=== PATIENT | female | born 1990 | race Two or more races ===

== ENCOUNTER 2021-11-18 07:09 | Outpatient (REF) | payer OTHER, MEDICARE, SELFPAY ==
--- NOTE | ~2021-11-18 | MR_ITS ---
EXAMINATION: MR LUMBAR SPINE WITHOUT CONTRAST CLINICAL INFORMATION: Spondylosis. Radiculopathy. Low back pain. Patient reports history of degenerative disc disease and ruptured discs. COMPARISON: None. TECHNIQUE: MRI of the lumbar spine was obtained using routine sequences without contrast. FINDINGS: VERTEBRAL BODIES AND PARASPINAL STRUCTURES: Vertebral bodies normally aligned with normal height and marrow. Multilevel degenerative disc changes with disc desiccation noted at the L2-L3 through L5-S1 discs. Paravertebral soft tissues unremarkable. CONUS MEDULLARIS AND CAUDA EQUINA: Conus at the level of L1-2. Cauda equina unremarkable. SPINAL LEVELS: T12-L1: Normal. L1-2: Normal. L2-L3: Minimal bulging of the disc. Facets normal. Central canal and neural foramina are normal. L3-L4: Minimal bulging of the disc. Facets normal. Central canal and neural foramina are normal. L4-L5: Minimal bulging of the disc. Facets normal. Central canal and neural foramina are normal. L5-S1: Disc desiccation with generalized bulging of the disc and slight loss in disc height. There is a left central disc protrusion with right T2 signal compatible with annular fissure. This mildly indents on the anterior thecal sac. This may abut the traversing left S1 nerve root. Facets normal. Central canal otherwise normal. Neural foramina are normal. MR/MR lumbar spine wo con IMPRESSION: Multilevel spondylosis of lumbosacral spine. L5-S1 - There is a left central disc protrusion mildly narrowing the central canal and possibly indenting on the traversing left S1 nerve root.
== END 2021-11-18 07:10 | disposition home or self-care (01) ==
LOC: HO.MRI 07:09
PROVIDERS: PCP Nurse Practitioner Family; Visit Provider Neurological Surgery
DX: M47.817 Spondylosis without myelopathy or radiculopathy, lumbosacral region (principal); M54.16 Radiculopathy, lumbar region
CPT/HCPCS: 72148

== ENCOUNTER → 2022-05-15 08:34 | Outpatient (BNVA) | payer OTHER, MEDICARE, SELFPAY | PROVIDERS: PCP Nurse Practitioner Family; Visit Provider Internal Medicine | DX: M54.17 Radiculopathy, lumbosacral region (principal) | CPT/HCPCS: 99212 ==

== ENCOUNTER → 2022-07-03 09:12 | Outpatient (BNVA) | payer OTHER, MEDICARE, MEDICAID, SELFPAY | PROVIDERS: PCP Nurse Practitioner Family; Visit Provider Internal Medicine | DX: M54.17 Radiculopathy, lumbosacral region (principal) | CPT/HCPCS: 99212 ==

== ENCOUNTER → 2022-07-28 09:50 | Outpatient (BNVA) | payer OTHER, MEDICARE, MEDICAID, SELFPAY | PROVIDERS: PCP Nurse Practitioner Family; Visit Provider Internal Medicine | DX: M54.17 Radiculopathy, lumbosacral region (principal) | CPT/HCPCS: 99212 ==

== ENCOUNTER → 2022-08-04 08:26 | Outpatient (BNVA) | payer OTHER, MEDICARE, MEDICAID, SELFPAY | PROVIDERS: PCP Nurse Practitioner Family; Visit Provider Internal Medicine | DX: Z13.89 Encounter for screening for other disorder (principal) ==

== ENCOUNTER → 2022-09-29 11:22 | Outpatient (BNVA) | payer OTHER, MEDICARE, MEDICAID, SELFPAY | PROVIDERS: PCP Nurse Practitioner Family; Visit Provider Internal Medicine | DX: M54.17 Radiculopathy, lumbosacral region (principal); M79.18 Myalgia, other site | CPT/HCPCS: 99212 ==

== ENCOUNTER → 2022-11-10 09:27 | Outpatient (BNVA) | payer OTHER, MEDICARE, MEDICAID, SELFPAY | PROVIDERS: PCP Nurse Practitioner Family; Visit Provider Internal Medicine | DX: M79.18 Myalgia, other site (principal); M54.17 Radiculopathy, lumbosacral region | CPT/HCPCS: 99212 ==

== ENCOUNTER → 2022-11-27 15:33 | Outpatient (BNVA) | payer OTHER, MEDICARE, MEDICAID, SELFPAY | PROVIDERS: PCP Nurse Practitioner Family; Visit Provider Internal Medicine | DX: M79.18 Myalgia, other site (principal); M54.17 Radiculopathy, lumbosacral region | CPT/HCPCS: 99212 ==

== ENCOUNTER 2022-11-27 15:34 | Outpatient (AMB) | payer OTHER, MEDICARE, MEDICAID, SELFPAY ==
--- OUTSIDE RECORDS SUMMARY | 2022-11-27 15:34 | XMS_ITS | Continuity of Care Document ---
Author Name Unknown Organization [facility] y Address [address] [place] [address], [address] [place] [address]- Care Team Providers Care Bisque Brusher Name Role Phone Edin Walker DMD Primary Care Physician Encounter [facility] Date(s): 08/25/22 - 10/11/22 [facility] [address] [place] [address] Drive, [address] [place] [address]- Attending Physician: Lei Suarez MD Referring Physician: Jhonathan ADEN, Naif Rondon Patient Care team information Care Team Personnel Name: Edin Walker DMD Position: Reference Physician Member Role: PCP Address: Address: [address] [place] [address] [address] [place] [address]-
[2022-11-27 15:46] VITALS: BP 120/70; PULSE 95; RESP 16; O2SAT 98; BMI 34.6
--- NOTE | 2022-11-27 15:46 | A.OFFVIS_ITS ---
Intake Vital Signs 11/27/22 15:46 Height 5 ft Weight 177 lb BMI 34.6 BP 120/70 Blood Pressure Location Rt brachial Position Sitting Respiration 16 Pulse 95 Pulse Source Pulse Oximeter Pulse Oximetry (%) 98 Oxygen Delivery Method Room Air Intake Visit Reasons: Follow Up to Complete CaseExpert Paperwork Allergies No Known Allergies Allergy (Verified 11/27/22 15:49) HPI Follow Up to Complete CaseExpert Paperwork HPI Details 32-year-old female presenting today for a follow-up to review and complete WC claim paperwork. Based on patient provided information, she is unable to participate in work requiring rigorous physical activity including lying ring stairs or ladders, lifting heavy objects or duties requiring bending, lifting and twisting. 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 [facility] Medical History (Updated 09/29/22 @ 12:07 by Naif Ring MD) Anxiety disorder Bipolar disorder PTSD (post-traumatic stress disorder) Stargardts disease Review of Systems Const All systems reviewed & are unremarkable except as noted in HPI and below Physical Exam Vital Signs: Last Vital Signs Pulse 95 11/27/22 15:46 Resp 16 11/27/22 15:46 BP 120/70 11/27/22 15:46 Pulse Ox 98 11/27/22 15:46 Oxygen Delivery Method Room Air 11/27/22 15:46 BMI result Body Mass Index 34.6 General: Appears afebrile. Alert and oriented. Mood and affect appropriate. Follows and participates in conversation appropriately. Respiratory effort is unlabored. Able to transition from sit to stand unassisted. Ambulates with bilaterally normal heel strike and toe off. Results Reviewed Results Reviewed: No imaging is available for review. Assessment & Plan Assessment & Plan (1) Myofascial pain syndrome: Code(s): M79.18 - Myalgia, other site (2) Lumbosacral radiculitis: Code(s): M54.17 - Radiculopathy, lumbosacral region Plan 32-year-old female with a work related injury with subsequent chronic S1 radiculopathy presenting for follow-up to review paperwork regarding potential return to work. 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 With regards to spinal cord stimulation, I reiterated that she is young for considering a permanent device implant. However, trial of spinal cord stimulation may be undertaken for temporary placement over the next few years un til her symptoms self-resolved. At that point the device may be removed to prevent any long-term complications from an external device placement. Documentation regarding the aforementioned recommendations was provided to the patient and faxed to her worker's comp tappet adjuster. Scribed for Dr. Ring by Ben Maza, medical van driver, on 11/27/2022. I, Dr. Ring, have personally reviewed and agree with the information entered by the scribe. Coding Level of Care Code Est Pt Level 4 (97501) Diagnoses Myofascial pain syndrome M79.18 Lumbosacral radiculitis M54.17
== END 2022-11-27 16:35 | disposition home or self-care (01) ==
PROVIDERS: PCP Nurse Practitioner Family; Visit Provider Internal Medicine
DX: M79.18 Myalgia, other site (principal); M54.17 Radiculopathy, lumbosacral region
CPT/HCPCS: 99214

== ENCOUNTER 2023-02-19 09:40 | Outpatient (AMB) | payer OTHER, MEDICARE, MEDICAID, SELFPAY ==
--- NOTE | 2023-02-19 09:46 | A.OFFVIS_ITS ---
Intake Vital Signs 02/19/23 09:47 Height 5 ft Weight 177 lb BMI 34.6 BP 124/76 Blood Pressure Location Lt brachial Position Sitting Respiration 14 Pulse 92 Pulse Source Pulse Oximeter Pulse Oximetry (%) 99 Oxygen Delivery Method Room Air Intake Visit Reasons: Discussion of Potential Neuropathy Allergies No Known Allergies Allergy (Verified 02/19/23 11:52) HPI Discussion of Potential Neuropathy HPI Details 32-year-old female who presents today to the office for a discussion of potential neuropathy. She reports worsening of her neuropathic pain in her foot and arms for the past three weeks. She has stiffness in her neck and has tried acupuncture therapy. She reports pain in her arms radiating down to her hand. This is new. She reports stabbing pain in the side of her leg that radiates down to her big toes, which is old. She is currently on gabapentin. She also takes Tylenol and ibuprofen. She has not performed physical therapy in the recent past. She had a nerve conduction study of the lower extremities in the past. [facility] Medical History (Updated 02/19/23 @ 11:52 by Lucille Medina) PTSD (post-traumatic stress disorder) Bipolar disorder Anxiety disorder Stargardts disease Review of Systems Const All systems reviewed & are unremarkable except as noted in HPI and below Physical Exam Vital Signs: Last Vital Signs Pulse 92 02/19/23 09:47 Resp 14 02/19/23 09:47 BP 124/76 02/19/23 09:47 Pulse Ox 99 02/19/23 09:47 Oxygen Delivery Method Room Air 02/19/23 09:47 BMI result Body Mass Index 34.6 General: Appears afebrile. Alert and oriented. Mood and affect appropriate. Follows and participates in conversation appropriately. Respiratory effort is unlabored. Able to transition from sit to stand unassisted. Ambulates with bilaterally normal heel strike and toe off. Results Reviewed Results Reviewed: No imaging is available for review. Assessment & Plan Assessment & Plan (1) Upper extremity pain, medial: Code(s): M79.603 - Pain in arm, unspecified Plan Ordered a nerve conduction study for the upper extremities. The patient will receive a call to schedule the appointment. The patient will follow up to review the result. Scribed for Dr. Ring by Ben Maza medical billing coordinator, on 02/19/2023. I, Dr. Ring, have personally reviewed and agree with the information entered by the scribe. Orders: Orders NE electromyogram (EMG) 02/19/23 M79.603 - Pain in arm, unspecified Coding Level of Care Code Est Pt Level 3 (96199) Diagnoses Upper extremity pain, medial M79.603
[2023-02-19 09:47] VITALS: BP 124/76; PULSE 92; RESP 14; O2SAT 99; BMI 34.6
== END 2023-02-19 10:27 | disposition home or self-care (01) ==
PROVIDERS: PCP Nurse Practitioner Family; Visit Provider Internal Medicine
DX: M79.603 Pain in arm, unspecified (principal)
CPT/HCPCS: 99213

== ENCOUNTER → 2023-02-19 09:40 | Outpatient (BNVA) | payer OTHER, MEDICARE, MEDICAID, SELFPAY | PROVIDERS: PCP Nurse Practitioner Family; Visit Provider Internal Medicine | DX: M79.603 Pain in arm, unspecified (principal) | CPT/HCPCS: 99212 ==

== ENCOUNTER 2023-04-27 11:02 | Outpatient (REF) | payer MEDICARE, OTHER, SELFPAY ==
--- NOTE | 2023-04-27 11:04 | EMG_ITS ---
Chief complaint: Bilateral arm pain, neck pain Reason for referral: Evaluate for radiculopathy Referred by: Dr. Ring Procedure done: Bilateral upper extremities NCS/EMG Precautions and/or limitations: None The limb temperature was monitored continuously and remained between 32-36 degrees C during the performance of the NCS. Nerve Conduction Studies Anti Sensory Summary Table ?Stim Site NR Onset (ms) Norm Onset (ms) Peak (ms) Norm Peak (ms) O-P Amp (?V) Norm O-P Amp Site1 Site2 Delta-0 (ms) Dist (cm) Cipriano (m/s) Norm Cipriano (m/s) Left Median Anti Sensory (2nd Digit) Wrist ? 2.0 2.6 <3.6 25.2 >10 Wrist 2nd Digit 2.0 14.0 70 Right Median Anti Sensory (2nd Digit) Wrist ? 2.0 2.7 <3.6 47.3 >10 Wrist 2nd Digit 2.0 14.0 70 Right Radial Anti Sensory (Thumb) Forearm ? 1.3 1.8 <3.1 33.6 Forearm Thumb 1.3 0.0 Left Ulnar Anti Sensory (5th Digit) Wrist ? 1.7 2.4 <3.7 45.5 >15.0 Wrist 5th Digit 1.7 14.0 82 Right Ulnar Anti Sensory (5th Digit) Wrist ? 2.0 2.6 <3.7 38.1 >15.0 Wrist 5th Digit 2.0 14.0 70 Motor Summary Table ?Stim Site NR Onset (ms) Norm Onset (ms) O-P Amp (mV) Norm O-P Amp iAmp (mV) Amp (1st) (%) Site1 Site2 Delta-0 (ms) Dist (cm) Cipriano (m/s) Norm Cipriano (m/s) Left Median Motor (Abd Poll Brev) Wrist ? 2.8 <3.9 15.1 >4.5 17.1 100.0 Elbow Wrist 3.1 19.0 61 >45 Elbow ? 5.9 13.7 15.5 90.7 Right Median Motor (Abd Poll Brev) Wrist ? 2.8 <3.9 14.4 >4.5 16.8 100.0 Elbow Wrist 3.1 18.5 60 >45 Elbow ? 5.9 14.3 16.8 99.3 Left Ulnar Motor (Abd Dig Minimi) Wrist ? 2.4 <3.0 9.2 >5 11.7 100.0 B Elbow Wrist 2.4 14.0 58 >45 B Elbow ? 4.8 9.1 11.9 98.9 A Elbow B Elbow 1.3 10.0 77 >45 A Elbow ? 6.1 8.3 11.0 90.2 Right Ulnar Motor (Abd Dig Minimi) Wrist ? 2.5 <3.0 10.1 >5 12.7 100.0 B Elbow Wrist 2.7 17.0 63 >45 B Elbow ? 5.2 9.7 12.2 96.0 A Elbow B Elbow 1.1 10.0 91 >45 A Elbow ? 6.3 9.6 12.6 95.0 EMG ?Side Muscle Nerve Root Ins Act Fibs Psw Amp Dur Poly Recrt Int Pat Comment Right 1stDorInt Ulnar C8-T1 Nml Nml Nml Nml Nml 0 Nml Complete Right FlexCarRad Median C6-7 Nml Nml Nml Nml Nml 0 Nml Complete Right Biceps Musculocut C5-6 Nml Nml Nml Nml Nml 0 Nml Complete Right Triceps Radial C6-7-8 Nml Nml Nml Nml Nml 0 Nml Complete Right Deltoid Axillary C5-6 Nml Nml Nml Nml Nml 0 Nml Complete Left 1stDorInt Ulnar C8-T1 Nml Nml Nml Nml Nml 0 Nml Complete Left FlexCarRad Median C6-7 Nml Nml Nml Nml Nml 0 Nml Complete Left Biceps Musculocut C5-6 Nml Nml Nml Nml Nml 0 Nml Complete Left Triceps Radial C6-7-8 Nml Nml Nml Nml Nml 0 Nml Complete Left Deltoid Axillary C5-6 Nml Nml Nml Nml Nml 0 Nml Complete FINDINGS: All motor and sensory nerves tested showed normal latencies, amplitudes and conduction velocities. Concentric needle EMG was performed in selected muscles of the bilateral upper extremities. Study did not reveal signs of electric abnormalities as shown in the table below. IMPRESSION: 1. This is a normal study. 2. There is no electrodiagnostic evidence for median neuropathy, ulnar neuropathy, brachial plexopathy, or cervical radiculopathy. Thank you for your kind referral. Tierra Duran MD, DORI Board Certified, [place] [employer] and Rehabilitation (ABPMR) Board Certified, [place] Board of Electrodiagnostic Medicine (ABEM) CODIN 58815 x 2 MTDD
== END 2023-04-27 11:03 | disposition home or self-care (01) ==
LOC: HO.NEURO 11:02
PROVIDERS: PCP Nurse Practitioner Family; Visit Provider Internal Medicine
DX: M79.601 Pain in right arm (principal); M79.602 Pain in left arm; M54.2 Cervicalgia
CPT/HCPCS: 95886; 95911

== ENCOUNTER → 2023-04-27 11:04 | Outpatient (BNV) | payer MEDICARE, MEDICAID, SELFPAY | PROVIDERS: PCP Nurse Practitioner Family; Visit Provider Physical Medicine & Rehabilitation | DX: M79.601 Pain in right arm (principal); M79.602 Pain in left arm; M54.2 Cervicalgia | CPT/HCPCS: 95886; 95911 ==

== ENCOUNTER → 2023-05-11 08:14 | Outpatient (BNVA) | payer OTHER, MEDICARE, MEDICAID, SELFPAY | PROVIDERS: PCP Nurse Practitioner Family; Visit Provider Internal Medicine | DX: M54.12 Radiculopathy, cervical region (principal); M54.17 Radiculopathy, lumbosacral region | CPT/HCPCS: 99212 ==

== ENCOUNTER 2023-05-11 08:15 | Outpatient (AMB) | payer OTHER, MEDICARE, MEDICAID, SELFPAY ==
--- NOTE | 2023-05-11 08:16 | MHC.OFFVIS ---
Intake Vital Signs 05/11/23 08:18 Height 5 ft Weight 177 lb BMI 34.6 Blood Pressure Location Lt brachial Position Sitting Respiration 12 Pulse 99 Pulse Source Pulse Oximeter Pulse Oximetry (%) 97 Oxygen Delivery Method Room Air Intake Visit Reasons: Follow Up/Back Pain/lvm Allergies No Known Allergies Allergy (Verified 05/11/23 08:19) Medication List - Last Reconciled 05/11/23 by Shari Grady LPN albuterol sulfate 90 mcg/actuation (ProAir HFA) 2 puffs inhalation Q4H PRN cholecalciferol (vitamin D3) 50 mcg PO DAILY cyclobenzaprine 10 mg PO BID PRN fluoxetine 40 mg PO DAILY gabapentin 800 mg PO TID L norgest/e.estradiol-e.estrad 0.15 mg-30 mcg (84)/10 mcg (7) (Simpesse) 1 tab PO DAILY melatonin 3 mg PO BEDTIME HPI Follow Up/Back Pain/lvm HPI Details 33-year-old female who presents today to the office for a follow-up. The patient reports pain in the back that radiates down to her legs, especially on the left side. She has difficulty standing for more than an hour. She had an interlaminar epidural injection in the past with minimal relief for 2?3 days. She has been doing stretching exercises at home. She states that her insurance approved only 10 sessions of physical therapy for low back pain that she exhausted. She spends most of her day resting on the couch. She has on-and-off neuropathic pain in her hands and neck. She has mild neck stiffness. She has tried physical therapy for the neck pain. [facility] Medical History (Updated 05/11/23 @ 08:38 by Naif Ring MD) PTSD (post-traumatic stress disorder) Bipolar disorder Anxiety disorder Stargardts disease Review of Systems Const All systems reviewed & are unremarkable except as noted in HPI and below Physical Exam Vital Signs: Last Vital Signs Pulse 99 05/11/23 08:18 Resp 12 05/11/23 08:18 Pulse Ox 97 05/11/23 08:18 Oxygen Delivery Method Room Air 05/11/23 08:18 BMI result Body Mass Index 34.6 General: Appears afebrile. Alert and oriented. Mood and affect appropriate. Follows and participates in conversation appropriately. Respiratory effort is unlabored. Able to transition from sit to stand unassisted. Ambulates with bilaterally normal heel strike and toe off. Straight leg raise is positive on the left side. She is able to stand on both her heels. No lower left extremity weakness. Results Reviewed Results Reviewed: 04/27/23: Nerve conduction study FINDINGS: All motor and sensory nerves tested showed normal latencies, amplitudes and conduction velocities. Concentric needle EMG was performed in selected muscles of the bilateral upper extremities. Study did not reveal signs of electric abnormalities as shown in the table below. IMPRESSION: 1. This is a normal study. 2. There is no electrodiagnostic evidence for median neuropathy, ulnar neuropathy, brachial plexopathy, or cervical radiculopathy. Assessment & Plan Assessment & Plan (1) Cervical radiculitis: Code(s): M54.12 - Radiculopathy, cervical region (2) Lumbosacral radiculitis: Code(s): M54.17 - Radiculopathy, lumbosacral region Plan Will schedule her for a left L5-S1 TFESI for her persistent left lumbar radiculitis symptoms. Reviewed MRI with the patient. Discussed the risks and benefits of the procedure with the patient in detail. All questions were answered. The patient is on board with the plan. I also encouraged her to continue with strengthening exercises and physical therapy exercises at home. I also recommended trying swimming and inversion table at home. Justification for interventional therapy: ? Patient with average pain > 6/10 ? Patient has exhausted conservative therapy ? Patient continuing home exercise program A referral was provided to physical therapy for neck pain and radiculitis with radiating symptoms down the left arm. Scribed for Dr. Ring by Ben Maza, back office medical assistant, on 05/11/2022. I, Dr. Ring, have personally reviewed and agree with the information entered by the scribe. Orders: Orders PT Evaluation and Treatment Today M54.12 - Radiculopathy, cervical region Coding Level of Care Code Est Pt Level 4 (46769) Diagnoses Cervical radiculitis M54.12 Lumbosacral radiculitis M54.17
[2023-05-11 08:18] VITALS: PULSE 99; RESP 12; O2SAT 97; BMI 34.6
== END 2023-05-11 08:41 | disposition home or self-care (01) ==
PROVIDERS: PCP Nurse Practitioner Family; Visit Provider Internal Medicine
DX: M54.12 Radiculopathy, cervical region (principal); M54.17 Radiculopathy, lumbosacral region
CPT/HCPCS: 99214

== ENCOUNTER 2023-06-14 06:09 | Outpatient (REF) | payer OTHER, MEDICARE, MEDICAID, SELFPAY ==
--- NOTE | ~2023-06-14 | FL_ITS ---
CLINICAL INDICATION: Lumbar radiculopathy. FINDINGS: Technical assistance and equipment were provided by the Department of Radiology during intraoperative fluoroscopy for percutaneous injection. 4, limited fluoroscopic spot images are submitted. A radiologist was not present during the procedure. Images demonstrate the tip of a percutaneous needle to project roughly over the region of the left posterior elements below the left pedicle at L5-S1. Contrast is injected. The images are available for review on PACS. TOTAL FLUOROSCOPY TIME: 0.2 minutes. DOSE AREA PRODUCT: 0.06 Gy-cm2 (andrade-centimeter squared) FL/FL guidance in treatment room IMPRESSION: Technical assistance and equipment provided by the Department of Radiology during intraoperative fluoroscopy, as above. Please see operative report for further details.
== END 2023-06-14 06:10 | disposition home or self-care (01) ==
LOC: CF 06:09
PROVIDERS: Visit Provider Internal Medicine
DX: M54.17 Radiculopathy, lumbosacral region (principal)
CPT/HCPCS: 64483; J1100; Q9967

== ENCOUNTER 2023-06-14 10:11 | Outpatient (AMB) | payer OTHER, MEDICARE, MEDICAID, SELFPAY ==
--- NOTE | 2023-06-14 10:05 | MHC.OFFVIS ---
Intake Vital Signs 06/14/23 10:10 06/14/23 11:17 Height 5 ft 5 ft Weight 175 lb 175 lb BMI 34.2 34.2 BP 120/62 118/68 Blood Pressure Location Lt brachial Lt brachial Position Sitting Sitting Respiration 14 14 Pulse 75 82 Pulse Source Pulse Oximeter Pulse Oximeter Pulse Oximetry (%) 98 99 Oxygen Delivery Method Room Air Room Air Comment Pre-op Post-Op Intake Visit Reasons: Left L5-S1 TFESI Fitness Manager Required: No Accompanied by: Self / Same As Patient Allergies No Known Allergies Allergy (Verified 05/11/23 08:19) HPI Left L5-S1 TFESI HPI Details Patient presents for scheduled procedure. Denies any recent cough, cold, infection, fever or other significant changes in medical history since last office visit. [facility] Medical History (Updated 05/11/23 @ 08:38 by Naif Ring MD) PTSD (post-traumatic stress disorder) Bipolar disorder Anxiety disorder Stargardts disease Physical Exam Vital Signs: Last Vital Signs Pulse 82 06/14/23 11:17 Resp 14 06/14/23 11:17 BP 118/68 06/14/23 11:17 Pulse Ox 99 06/14/23 11:17 Oxygen Delivery Method Room Air 06/14/23 11:17 BMI result Body Mass Index 34.2 Office Procedures Details: Transforaminal epidural steroid injection, Left L5 After obtaining written consent, pre-procedure blood pressure and heart rate were stable and recorded in the nursing record. The patient was placed in the prone position on the fluoroscopy table. The lumbosacral area was prepped with chloraprep, allowed to dry and draped in sterile fashion. Using fluoroscopy, the skin overlying our target was anesthetized with 0.5% lidocaine. A 22 gauge 3.5 inch spinal needle was advanced to the safe triangle in the upper pole of the left L5 foramen. No paresthesias were elicited with needle placement and aspiration was negative for blood and CSF. Correct needle position was confirmed with approximately 1 ml contrast dye (Omnipaque 180 mg/ml) injected under real-time fluoroscopy. No evidence of vascular or intrathecal uptake was seen and there was both epidural and peripheral spread of the contrast agent. 10 mg dexamethasone plus 1 ml containing 0.5% lidocaine was slowly injected. The needle was flushed and removed. the same procedure was repeated for the remaining levels. The skin was cleansed and a sterile bandages were applied. The patient tolerated the procedure well and no complications were encountered. Following the procedure the patient's vital signs were stable. The patient was discharged home in good condition with post-procedural instructions. Time Out: Immediately prior to the procedure, the following was verbally confirmed that there is a signed consent form and that the correct patient, planned procedure, site and side are consistent with documentation and that necessary equipment and/or blood products are available prior to the start of the case. Complications: none EBL: <5 cc 56584 - Lumbar/Sacral Procedure code (CPT) selection complete Assessment & Plan Assessment & Plan (1) Lumbosacral radiculitis: Code(s): M54.17 - Radiculopathy, lumbosacral region Plan Patient is status post left L5 TFESI. Patient tolerated procedure well and was discharged home in stable condition with discharge instructions. All questions were answered. We will follow-up via telephone or in clinic to assess response to therapy. A follow-up appointment was made during today's visit. Orders: Orders FL guidance in treatment room Today M54.17 - Radiculopathy, lumbosacral region Coding Level of Care Code Procedure Only Diagnoses Lumbosacral radiculitis M54.17 CPT Codes Transforaminal Epidural Steroid Inj - TESI 3: 39919 - Lumbar/Sacral ([id number])
[2023-06-14 10:10] VITALS: BP 120/62; PULSE 75; RESP 14; O2SAT 98; BMI 34.2
[2023-06-14 11:17] VITALS: BP 118/68; PULSE 82; RESP 14; O2SAT 99; BMI 34.2
== END 2023-06-14 11:09 | disposition home or self-care (01) ==
LOC: HO.PMCPRC 10:11
PROVIDERS: PCP Nurse Practitioner Family; Visit Provider Internal Medicine
DX: M54.17 Radiculopathy, lumbosacral region (principal)
CPT/HCPCS: 64483

== ENCOUNTER 2023-07-13 08:42 | Outpatient (AMB) | payer OTHER, MEDICARE, MEDICAID, SELFPAY ==
[2023-07-13 08:43] VITALS: BP 146/87; PULSE 81; RESP 12; O2SAT 98; BMI 34.2
--- NOTE | 2023-07-13 08:43 | MHC.OFFVIS ---
Intake Vital Signs 07/13/23 08:43 Height 5 ft Weight 175 lb BMI 34.2 BP 146/87 H Blood Pressure Location Lt brachial Position Sitting Respiration 12 Pulse 81 Pulse Source Pulse Oximeter Pulse Oximetry (%) 98 Oxygen Delivery Method Room Air Intake Visit Reasons: s/p Left L5-S1 TFESI Allergies No Known Allergies Allergy (Verified 07/13/23 08:45) Medication List - Last Reconciled 07/13/23 by Shari Grady LPN albuterol sulfate 90 mcg/actuation (ProAir HFA) 2 puffs inhalation Q4H PRN cholecalciferol (vitamin D3) 50 mcg PO DAILY cyclobenzaprine 10 mg PO BID PRN fluoxetine 40 mg PO DAILY gabapentin 800 mg PO TID L norgest/e.estradiol-e.estrad 0.15 mg-30 mcg (84)/10 mcg (7) (Simpesse) 1 tab PO DAILY melatonin 3 mg PO BEDTIME HPI s/p Left L5-S1 TFESI HPI Details 33-year-old female who presents today to the office for a status post left L5-S1 TFESI The patient reports 70% relief following the procedure. She has had significant improvement in her pain. She continues to do physical therapy at home. She requests refill of diclofenac and methocarbamol. She is taking gabapentin 800 mg T.I.D. She also takes cyclobenzaprine (10 mg). She is taking fluoxetine for PTSD. She is not taking melatonin. Past procedure: 06/14/23: Transforaminal epidural steroid injection, Left L5: 70% relief. [facility] Medical History (Updated 05/11/23 @ 08:38 by Naif Ring MD) PTSD (post-traumatic stress disorder) Bipolar disorder Anxiety disorder Stargardts disease Review of Systems Const All systems reviewed & are unremarkable except as noted in HPI and below Physical Exam Vital Signs: Last Vital Signs Pulse 81 07/13/23 08:43 Resp 12 07/13/23 08:43 BP 146/87 H 07/13/23 08:43 Pulse Ox 98 07/13/23 08:43 Oxygen Delivery Method Room Air 07/13/23 08:43 BMI result Body Mass Index 34.2 General: Appears afebrile. Alert and oriented. Mood and affect appropriate. Follows and participates in conversation appropriately. Respiratory effort is unlabored. Able to transition from sit to stand unassisted. Ambulates with bilaterally normal heel strike and toe off. Results Reviewed Results Reviewed: No imaging is available for review. Assessment & Plan Assessment & Plan (1) Lumbosacral radiculitis: Code(s): M54.17 - Radiculopathy, lumbosacral region Plan I advised the patient to continue her physical therapy exercises at home. I also recommended trying stretching exercises and swimming with physical therapy. I provided a prescription of celecoxib and methocarbamol today. I advised her to avoid taking methocarbamol and cyclobenzaprine together. Follow-up as needed. Scribed for Dr. Ring by Ben Maza, biomedical engineering professor, on 07/13/2023. I, Dr. Ring, have personally reviewed and agree with the information entered by the scribe. Medications: New celecoxib 100 mg PO BID 60 caps 0RF methocarbamol 500 mg PO TID PRN 90 tabs 0RF moderate pain (scale score 5-6) Coding Level of Care Code Est Pt Level 3 (37473) Diagnoses Lumbosacral radiculitis M54.17
== END 2023-07-13 09:12 | disposition home or self-care (01) ==
LOC: HO.PMC 08:42
PROVIDERS: PCP Nurse Practitioner Family; Visit Provider Internal Medicine
DX: M54.17 Radiculopathy, lumbosacral region (principal)
CPT/HCPCS: 99213

== ENCOUNTER → 2023-07-13 08:42 | Outpatient (BNVA) | payer OTHER, MEDICARE, MEDICAID, SELFPAY | PROVIDERS: PCP Nurse Practitioner Family; Visit Provider Internal Medicine | DX: M54.17 Radiculopathy, lumbosacral region (principal) | CPT/HCPCS: 99212 ==

== ENCOUNTER 2023-09-24 07:51 | Outpatient (AMB) | payer OTHER, MEDICARE, MEDICAID, SELFPAY ==
--- NOTE | 2023-09-24 07:56 | A.OFFVIS_ITS ---
Vital Signs 09/24/23 07:58 Height 5 ft Weight 173 lb BMI 33.8 BP 130/77 Blood Pressure Location Lt brachial Position Sitting Respiration 14 Pulse 67 Pulse Source Pulse Oximeter Pulse Oximetry (%) 100 Oxygen Delivery Method Room Air Intake Visit Reasons: Discuss Medication Allergies celecoxib Allergy (Severe, Verified 09/24/23 08:00) body swelling, itching Medication List - Last Reconciled 09/24/23 by Shari Grady LPN albuterol sulfate 90 mcg/actuation (ProAir HFA) 2 puffs inhalation Q4H PRN cholecalciferol (vitamin D3) 50 mcg PO DAILY fluoxetine 40 mg PO DAILY L norgest/e.estradiol-e.estrad 0.15 mg-30 mcg (84)/10 mcg (7) (Simpesse) 1 tab PO DAILY melatonin 3 mg PO BEDTIME methocarbamol 500 mg PO TID PRN HPI HPI Discuss Medication: Details: 33-year-old female who presents today to the office for a discussion of medication. The pain has started to return now. The pain is worse on both sides. The pain feels like pulling sensations from her hip region. She also reports shooting pain that radiates down to her leg. She is taking a muscle relaxant, P.R.N. She is also taking ibuprofen and Tylenol. She continues to perform home exercises, which provide only temporary relief. She denies any side effects from ibuprofen. She has an allergic reaction to Celebrex. She inquired about the other NSAIDs for her pain. She feels she has inflammation in her lower back , which she thinks is the main cause of her pain. She has been looking to try flax seed oil. She has been taking methocarbomol for muscle spasms. She also complains of bilateral groin pain. She had fractured her left hip as a teenager.?She has tried acupuncture at [facility] acupuncture with Flaco Perez. She has not tried trigger point injections in the past. Past procedure: 06/14/23: Transforaminal epidural steroid injection, Left L5: 70% relief for 2 months. [facility] Medical History (Updated 09/24/23 @ 08:33 by Naif Ring MD) PTSD (post-traumatic stress disorder) Bipolar disorder Anxiety disorder Stargardts disease Review of Systems Const All systems reviewed & are unremarkable except as noted in HPI and below Physical Exam Vital Signs: Last Vital Signs Pulse 67 09/24/23 07:58 Resp 14 09/24/23 07:58 BP 130/77 09/24/23 07:58 Pulse Ox 100 09/24/23 07:58 Oxygen Delivery Method Room Air 09/24/23 07:58 BMI result Body Mass Index 33.8 General: Appears afebrile. Alert and oriented. Mood and affect appropriate. Follows and participates in conversation appropriately. Respiratory effort is unlabored. Able to transition from sit to stand unassisted. Ambulates with bilaterally normal heel strike and toe off. LUKAS reproduces pain in the left groin. Results Reviewed Results Reviewed: No imaging is available for review. Assessment & Plan Assessment & Plan (1) Lumbosacral radiculitis: Code(s): M54.17 - Radiculopathy, lumbosacral region Category: Medical (2) Bilateral hip pain: Code(s): M25.551 - Pain in right hip; M25.552 - Pain in left hip Category: Medical (3) Myofascial pain syndrome: Code(s): M79.18 - Myalgia, other site Category: Medical Plan An x-ray of the hips was ordered today to assess for hip osteoarthritis in the setting of a prior left hip fracture and ongoing groin pain. A referral back to acupuncture for her continued myofascial pain symptoms and lumbar radiculitis. Consider trigger point injections in the future for muscle related pain. Renew Methocarbamol 500 milligrams TID. Discussed minimizing NSAID intake to prevent GI and symptoms. The patient understands, and will try to come up with a multimodal, non-pharmacologic regimen to help with her flares. Scribed for Dr. Ring by Ben Maza medical records receptionist, on 09/24/2023. I, Dr. Ring, have personally reviewed and agree with the information entered by the scribe. Orders: Orders XR hip BI w PEL1V 09/24/23 M25.551 - Pain in right hip, M25.552 - Pain in left hip XR hip LT min 2V 09/24/23 M25.551 - Pain in right hip, M25.552 - Pain in left hip, M54.17 - Radiculopathy, lumbosacral region Referrals Acupuncture Referral M54.17 - Radiculopathy, lumbosacral region, M79.18 - Myalgia, other site Medications: Refilled methocarbamol 500 mg PO TID PRN 90 tabs 5RF moderate pain (scale score 5-6) Coding Level of Care Code Est Pt Level 4 (00892) Diagnoses Lumbosacral radiculitis M54.17 Bilateral hip pain M25.551; M25.552 Myofascial pain syndrome M79.18
[2023-09-24 07:58] VITALS: BP 130/77; PULSE 67; RESP 14; O2SAT 100; BMI 33.8
== END 2023-09-24 09:01 | disposition home or self-care (01) ==
PROVIDERS: PCP Nurse Practitioner Family; Visit Provider Internal Medicine
DX: M54.17 Radiculopathy, lumbosacral region (principal); M25.551 Pain in right hip; M25.552 Pain in left hip; M79.18 Myalgia, other site
CPT/HCPCS: 99214

== ENCOUNTER 2023-09-24 07:51 | Outpatient (REF) | payer MEDICARE, MEDICAID, SELFPAY ==
--- NOTE | ~2023-09-24 | XR_ITS ---
EXAMINATION: XR BILATERAL HIPS WITH AP PELVIS CLINICAL INFORMATION: Pain in the right hip COMPARISON: None available. TECHNIQUE: AP view of the pelvis and 2 views of each hip were obtained. FINDINGS: No fracture. Hip joint spaces are maintained. Alignment is anatomic. Sacroiliac joints and pubic symphysis are normal. No abnormal soft tissue calcifications. XR/XR hip BI w PEL1V IMPRESSION: Normal pelvis and hips.
== END 2023-09-24 07:52 | disposition home or self-care (01) ==
LOC: HO.XRAY 07:51
PROVIDERS: PCP Nurse Practitioner Family; Visit Provider Internal Medicine
DX: M54.17 Radiculopathy, lumbosacral region (principal); M25.551 Pain in right hip; M25.552 Pain in left hip; M79.18 Myalgia, other site
CPT/HCPCS: 73521; 99212

== ENCOUNTER 2023-12-17 09:46 | Outpatient (AMB) | payer MEDICARE, MEDICAID, SELFPAY ==
--- NOTE | 2023-12-17 10:24 | A.OFFVIS_ITS ---
Vital Signs 12/17/23 10:25 Height 5 ft Weight 173 lb BMI 33.8 BP 108/68 Blood Pressure Location Lt brachial Position Sitting Respiration 14 Pulse 91 Pulse Source Pulse Oximeter Pulse Oximetry (%) 98 Oxygen Delivery Method Room Air Intake Visit Reasons: Discuss X-Ray Results Allergies celecoxib Allergy (Severe, Verified 12/17/23 10:27) body swelling, itching Medication List - Last Reconciled 12/17/23 by Shari Grady LPN albuterol sulfate 90 mcg/actuation (ProAir HFA) 2 puffs inhalation Q4H PRN cholecalciferol (vitamin D3) 50 mcg PO DAILY fluoxetine 40 mg PO DAILY L norgest/e.estradiol-e.estrad 0.15 mg-30 mcg (84)/10 mcg (7) (Simpesse) 1 tab PO DAILY melatonin 3 mg PO BEDTIME methocarbamol 500 mg PO TID PRN HPI HPI Discuss X-Ray Results: Details: 33-year-old female who presents today to the office for a discussion of x-ray result. She reports pain in her hip region that radiates down to her toes. The pain is present on both sides. The pain feels like pulling sensations from her hip/groin region. It is on and off in nature which is getting more frequent and is worse with physical activities like walking. She has tried acupuncture at [facility] acupuncture with Flaco Perez. She had an x-ray of the hip/pelvis region, which was reviewed today. Past procedure: 06/14/23: Transforaminal epidural steroid injection, Left L5: 70% relief for 2 months. [facility] Medical History (Updated 09/24/23 @ 08:33 by Naif Ring MD) PTSD (post-traumatic stress disorder) Bipolar disorder Anxiety disorder Stargardts disease Review of Systems Const All systems reviewed & are unremarkable except as noted in HPI and below Physical Exam Vital Signs: Last Vital Signs Pulse 91 12/17/23 10:25 Resp 14 12/17/23 10:25 BP 108/68 12/17/23 10:25 Pulse Ox 98 12/17/23 10:25 Oxygen Delivery Method Room Air 12/17/23 10:25 BMI result Body Mass Index 33.8 General: Appears afebrile. Alert and oriented. Mood and affect appropriate. Follows and participates in conversation appropriately. Respiratory effort is unlabored. Able to transition from sit to stand unassisted. Ambulates with bilaterally normal heel strike and toe off. Results Reviewed Results Reviewed: 09/24/23: XR BILATERAL HIPS WITH AP PELVIS FINDINGS: No fracture. Hip joint spaces are maintained. Alignment is anatomic. Sacroiliac joints and pubic symphysis are normal. No abnormal soft tissue calcifications. IMPRESSION: Normal pelvis and hips. Assessment & Plan Assessment & Plan (1) Bilateral hip pain: Code(s): M25.551 - Pain in right hip; M25.552 - Pain in left hip Category: Medical Plan A referral was provided to physical therapy for the hip pain for 2?3 months. The patient will receive a call to schedule an appointment. If the pain continues to persist, we will get an MRI scan for further evaluation. Follow up in three months. Scribed for Dr. Ring by Ben Maza, medical receptionist assistant, on 12/17/2023. I, Dr. Ring, have personally reviewed and agree with the information entered by the scribe. Orders: Orders PT Evaluation and Treatment 12/17/23 M25.551 - Pain in right hip, M25.552 - Pain in left hip Coding Level of Care Code Est Pt Level 3 (36929) Diagnoses Bilateral hip pain M25.551; M25.552
[2023-12-17 10:25] VITALS: BP 108/68; PULSE 91; RESP 14; O2SAT 98; BMI 33.8
== END 2023-12-17 10:58 | disposition home or self-care (01) ==
LOC: HO.PMC 09:46
PROVIDERS: PCP Nurse Practitioner Family; Visit Provider Internal Medicine
DX: M25.551 Pain in right hip (principal); M25.552 Pain in left hip
CPT/HCPCS: 99213

== ENCOUNTER → 2023-12-17 09:46 | Outpatient (BNVA) | payer MEDICARE, MEDICAID, SELFPAY | PROVIDERS: PCP Nurse Practitioner Family; Visit Provider Internal Medicine | DX: M25.551 Pain in right hip (principal); M25.552 Pain in left hip | CPT/HCPCS: 99212 ==

== ENCOUNTER 2024-07-01 22:54 | Emergency (ER) | payer MEDICAID, SELFPAY ==
--- NOTE | ~2024-07-01 | XR_ITS ---
CLINICAL HISTORY: sob 1 view chest x-ray Comparison: None Findings: Minimal left basilar atelectasis. No significant pleural effusion or pneumothorax. Prominent cardiac silhouette. No acute fracture. IMPRESSION: Minimal left basilar atelectasis. This document has been electronically signed by: Zachary Jackson MD on 07/01/2024 23:44:37
[2024-07-01 23:13] VITALS: BP 127/89; PULSE 89; RESP 18; TEMP 36.6; O2SAT 98; BMI 32.1
[2024-07-02 00:07] LABS: Influenza A PCR NEGATIVE (Negative); Influenza B PCR NEGATIVE (Negative); Resp Syncy Virus RNA Qual PCR NEGATIVE (Negative); SARS COV2 PCR INHOUSE NEGATIVE (Negative)
[2024-07-02 02:29] VITALS: BP 142/98; PULSE 81; RESP 16; TEMP 36.1; O2SAT 97
--- NOTE | 2024-07-02 02:31 | PC.NURSE ---
pt refused tylenol/ibuprofen for pain. stated they don't work.
--- OUTSIDE RECORDS SUMMARY | 2024-07-02 04:53 | XMS_ITS | Data Portability ---
Author Organization [facility], [facility] Address [address] [place] [address] Care Team Providers Care Army Officer Name Role Phone CADEN CARRANZA Cisco Consultant Assessment No assessment recorded. Plan of Treatment Reminders Order Date Submit Date Provider Last Modified By Organization Details Last Modified Time Details Appointments None recorded. Lab test, urine 2020 021 [id number] [facility] [address], [address], 12:04:36 Referral None recorded. Procedures None recorded. Surgeries None recorded. Imaging None recorded. Medication Orders Seasonique 0.15 mg-30 mcg (84)/10 mcg(7) tablets,3 month dose pack 2020 021 INTERFACE [id number], [address], [phone], 11:22:59 Patient TargetsNo targets recorded. Patient InstructionsNo instructions recorded. Reason for Referral None Reported. Results Created Date Observation Date Name Description Value Unit Range Abnormal Flag Note LastModifiedBy Organization Detail LastModifiedTime 06/30/19 21 06/30/2020 pregn franklin test, urine HCG negati ve Not Available [facility], [address], 06/30/2020 11:05:30 Result Notes None recorded. Procedures Surgical History Date Name Laterality Status Provider Name and Address Organization Details Recorded Time Control Implant Removal completed Caden Carranza MD [address] [facility], [place], [address], [facility] - [facility] 06/30/2020 11:21:49 section completed Maricruz Alexandra CMA MD - [facility] 06/30/2020 11:04:53 Imaging Results None recorded. Procedure Notes None recorded. Medical Equipment None Reported. Allergies No known drug allergies Medications Name Sig Start Date Stop Date Status Note LastModified by Organization Details LastModified Time fluoxetine 40 mg capsule 06/30 completed Not Available Not Available Not Available methocarbamo l 500 mg tablet 06/30 completed Not Available Not Available Not Available cetirizine 10 mg tablet 06/30 completed Not Available Not Available Not Available tizanidine 4 mg tablet TAKE 1 TABLET BY MOUTH THREE TIMES DAILY NEEDED FOR MUSCLE SPASM active Not Available Not Available No t Available prednisone 20 mg tablet 06/30 completed Not Available Not Available Not Available dexamethason e 6 mg tablet 06/30 completed Not Available Not Available Not Available Seroquel 25 mg tablet 06/30 completed Not Available Not Available Not Available tramadol 50 mg tablet 06/30 completed Not Available Not Available Not Available quetiapine 100 mg tablet 06/30 completed Not Available Not Available Not Available Lidoderm 5 % topical patch 06/30 completed Not Available Not Available Not Available baclofen 10 mg tablet 06/30 completed Not Available Not Available Not Available neomycin-israel ymyxin-dexam eth 3.5 mg/mL-10,000 unit/mL-0.1% eye drops 06/30 completed Not Available Not Available Not Available gabapentin 300 mg capsule TAKE 1 CAPSULE BY MOUTH THREE TIMES DAILY active Not Available Not Available No t Available diclofenac sodium 50 mg tablet,delay ed release 06/30 completed Not Available Not Available Not Available ibuprofen 600 mg tablet 06/30 completed Not Available Not Available Not Available albuterol sulfate HFA 90 mcg/actuatio n aerosol inhaler 06/30 completed Not Available Not Available Not Available celecoxib 100 mg capsule TAKE 1 CAPSULE BY MOUTH TWICE DAILY 06/30 completed Not Available Not Available Not Available fluoxetine 20 mg capsule active Not Available Not Available Not Available naproxen 500 mg tablet 06/30 completed Not Available Not Available Not Available Tylenol Extra Strength 500 mg tablet 06/30 completed Not Available Not Available Not Available azithromycin 500 mg tablet 06/30 completed Not Available Not Available Not Available Seasonique 0.15 mg-30 mcg (84)/10 mcg(7) tablets,3 month dose pack Take 1 tablet every day by oral route. 2020 active Not Available Not Available Not Avai lable quetiapine 50 mg tablet active Not Available Not Available Not Available Voltaren 1 % topical gel 06/30 completed Not Available Not Available Not Available Nexplanon 68 mg subdermal implant active Not Available Not Available Not Available Vitals None Recorded Social History Question Answer Notes LastModified by Organizat ion Details LastModified Time Tobacco Smoking Status Never Smoker Maricruz Alexandra, BARRERA null, [facility] 06/30/2020 11:04:12 Do You Have An Advance Directive? No Information not available 06/30/2020 What Is Your Level Of Alcohol Consumption? None Information not available 06/30/2020 What Is Your Level Of Caffeine Consumption? None Information not available 06/30/2020 In The 14 Days Before Symptom Onset, Have You Had Close Contact With A Laboratory-confir med COVID-19 While That Case Was Ill? No Information not available 06/30/2020 In The 14 Days Before Symptom Onset, Have You Had Close Contact With A Person Who Is Under Investigation For COVID-19 While That Person Was Ill? No Information not available 06/30/2020 Have You Been To An Area Known To Be High Risk For COVID-19? No Information not available 06/30/2020 Do You Or Have You Ever Used E-cigarettes Or Vape? Never Used Electronic Cigarettes Information not available 06/30/2020 Tobacco Product Use? No Information not available 06/30/2020 Illicit Drug Use No Informat ion not available 06/30/2020 Marital Status Unknown Informatio n not available 06/30/2020 Do You Or Have You Ever Used Smokeless Tobacco? Never Used Smokeless Tobacco Information not available 06/30/2020 How Much Tobacco Do You Smoke? No Information not available 06/30/2020 Sex: Unknown Functional Status None recorded. Mental Status None recorded. Family History Nothing Reported. Medical History No medical history recorded. Gynecological History Statement/Question Response Abnormal Pap Y Menstrual Headaches N Flow Light Date of LMP 06/30/2020 Menses Monthly Y STIs/STDs N Current Control Method None Obstetrics History GPAL:G 2 P 2 0 0 2 Type Value Full Term 2 Living 2 Total 2 Past Encounters Encounter ID Performer Location Encounter Start Date Encounter Closed Date Diagnosis/Indication Diagnosis SNOMED-CT Code Diagnosis ICD10 Code Diagnosis Note [id number] Caden Carranza MD [email or web address] [address] [place] [address] 06/30/2020 09:56:20 06/30/2020 17:31:54 Contraception care management [id number] Z30.9 Health Concerns Section Related Observation LastModified by Organization Detai ls LastModified Time None Recorded Concern Status LastModified by Organization Details LastModified Time None Recorded Advance Directives Directive N: Payers Encounter Date Sequence Insurance Name Policy Number Policy Garcia Covered Member ID Garcia Member ID Guarantor Name 06/30/2020 1 [employer] OF [place] (MEDICAID REPLACEMENT - HMO) [id number] Vaelri Peace [id number] Valeri Renteria Notes Date Note Type Note Provider Name and Address Organization Details Recorded Time 06/30/2020 text/html New pateint desires nexplanon removal and wants to be on the ocp. Caden Carranza MD [address] [place], [address], [facility] 06/30/2020 11:25:10 OBGyn Episode Ob Episode Information Episode Created Date Number of Fetuses Patient Bloodtype Patient rh Status Prepregnancy Weight lbs Domestic Partner Domestic Partner Phone Father Name Warp Tying Machine Tender Status 06/30/19 21 1 CLOSED Fetus Data First Name Last Name Admitted to NICU Weight (g) Sex Living Outcome Pediatric Complications Fetus ID Race Codes Race Delivery Type 3940.35 3704 M Full Term 3404 Daroin Calculation Initial Darion Date Initial Exam Date Initial Exam Provider Initial Ultrasound Date Last Menstrual Period Date Ultra Sound Weeks Gestation 0 Eighteen To Twenty Week Darion Update Ultra Sound Date Fundal Height At Umbil Quickening Date Ultra Sound Latest Weeks Gestation Final Darion Confirmed By Final Darion Confirmed Date Final Darion Date Ultra Sound Latest Days Gestation 0 0 Menstrual History Last Menstrual Date Menses Monthly On Bcp Conception Prior Menses Frequency Hcg Plus Date Menarche Onset Age Delivery Information Delivery Date Delivery Type Labor Anesthesia Weeks Gestation Incision Type Labor Labor Length Hrs Delivered By Post Complications Tubal Sterilization Discharge Date Comments 6 Regional-Sp inal false Discharge Information Feeding Method Contraceptive Method Maternal HG B and HCT Levels Ob Episode Information Episode Created Date Number of Fetuses Patient Bloodtype Patient rh Status Prepregnancy Weight lbs Domestic Partner Domestic Partner Phone Father Name Warp Tying Machine Tender Status 06/30/19 21 1 CLOSED Fetus Data First Name Last Name Admitted to NICU Weight (g) Sex Living Outcome Pediatric Complications Fetus ID Race Codes Race Delivery Type 3345.24 1 M Full Term 3403 Darion Calculation Initial Darion Date Initial Exam Date Initial Exam Provider Initial Ultrasound Date Last Menstrual Period Date Ultra Sound Weeks Gestation 0 Eighteen To Twenty Week Darion Update Ultra Sound Date Fundal Height At Umbil Quickening Date Ultra Sound Latest Weeks Gestation Final Darion Confirmed By Final Darion Confirmed Date Final Darion Date Ultra Sound Latest Days Gestation 0 0 Menstrual History Last Menstrual Date Menses Monthly On Bcp Conception Prior Menses Frequency Hcg Plus Date Menarche Onset Age Delivery Information Delivery Date Delivery Type Labor Anesthesia Weeks Gestation Incision Type Labor Labor Length Hrs Delivered By Post Complications Tubal Sterilization Discharge Date Comments 7 Regional-Sp inal false Discharge Information Feeding Method Contraceptive Method Maternal HG B and HCT Levels
--- OUTSIDE RECORDS SUMMARY | 2024-07-02 04:53 | XMS_ITS | Clinical Summary ---
Author Organization [employer] Address [address] [facility] [address] [place] [address] Care Team Providers Care Mirror Specialist Name Role Phone Unavailable Primary Care Provider Unavailabl e Allergies Active Allergy Reactions Criticality Noted Date Comments Gramineae Pollens Other Medium 05/29/2022 Medications celecoxib (CeleBREX) 100 MG capsule Take 100 mg by mouth 2 times daily. 08/04/2023 Active cholecalciferol VITAMIN D (Vitamin D-3) 50 MCG (1999) capsule Take by mouth Once per day. Active cyclobenzaprine (Flexeril) 10 MG tablet TAKE 1 TABLET BY MOUTH TWICE DAILY NEEDED FOR MUSCLE SPASM Active Diclofenac Potassium 25 MG capsule TAKE 1 CAPSULE BY MOUTH THREE TIMES DAILY NEEDED FOR MODERATE PAIN 05/29/2023 Active FLUoxetine (PROzac) 40 MG capsule Take 40 mg by mouth Once per day. Active fluticasone (Flonase) 50 MCG/ACT nasal spray 11/20/2023 Active ibuprofen 800 MG tablet Take 800 mg by mouth Once per day. Active Simpesse 0.15-0.03 &0.01 MG tablet tablet Take 1 tablet by mouth Once per day. Active melatonin 3 MG tablet Take 3 mg by mouth at bedtime. Active methocarbamol (Robaxin) 500 MG tablet Take 500 mg by mouth Once per day. 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 11/04 Impaired contrast sensitivity 11/21/2023 Migraine with aura and witho ut status migrainosus, not intractable 10/12/2021 Mild intermittent asthma without complication Pelvic pain syndrome 10/12/2021 Current moderate episode of major depressive dis order 07/11/2021 JALYN (generalized anxiety disorder) 07/11/2021 Lumbar herniated disc 04/21/2021 Blindness of both eyes 11/13/2020 Chronic bilateral low back pain with bilateral s ciatica 11/13/2020 Overview (11/21/2023): S/p injury 04/2018 Chronic post-traumatic stress disorder Social History Tobacco Use Types Packs/Day Years Used Date Smoking Tobacco: Never Assessed Comments Unknown Sex and Gender Information Value Date Recorded Sex Assigned at Female 03/06/2022 10:40 AM EDT Legal Sex Female 10:40 AM EDT Gender Identity Choose not to disclose 2 10:40 AM EDT Sexual Orientation Choose not to disclose 2021 10:40 AM EDT Plan of Treatment Health Maintenance Due Date Last Done Comments Depression Screening 1990 SDOH Screening 1990 Alcohol/Substance Use Screening 2002 Tobacco Screening 2002 Family Planning (PISQ) 2005 Hepatitis C Screening 2008 Pap Smear 2011 Cervical Cancer Screening 2020 HPV/Cotest 2020 COVID-19 Vaccine ( season) 2024 11/10/2020, 10/05/2020, 09/04/2020 DTaP/Tdap/Td Vaccines (3 - Td or Tdap) 02/12/2033 02/12/2023, 07/11/2021 Zoster Vaccines (1 of 2) 2040 RSV Patients and Patients Aged 60 years or older (1 - 1-dose 75+ series) 2065 HIV Screening Completed 01/11/2021 Pneumococcal Vaccine: Pediatrics (0 to 5 Years) and At-Risk Patients (6 to 49) Years) Completed 03/16/2022 Hepatitis B Vaccines Completed 12/18/2022, 09/13/19 Influenza Vaccine Completed 03/05/2024, , 03/16/2022, Additional history exists HIB Vaccines Aged Out No longer eligi ble based on patient's age to complete this topic HPV Vaccines Aged Out No longer eligi ble based on patient's age to complete this topic Hepatitis A Vaccines Aged Out No long er eligible based on patient's age to complete this topic IPV Vaccines Aged Out No longer eligi ble based on patient's age to complete this topic Meningococcal Vaccine Aged Out No aria everette eligible based on patient's age to complete this topic RSV under 20 months Aged Out No longe r eligible based on patient's age to complete this topic Rotavirus Vaccines Aged Out No longer eligible based on patient's age to complete this topic Insurance [facility] H[facility] MEDICARE ADVANTAGE HMO
--- OUTSIDE RECORDS SUMMARY | 2024-07-02 04:53 | XMS_ITS | Clinical Summary ---
Author Organization [facility] Address [address] [place] [address] Care Team Providers Care Truck Repair Service Estimator Name Role Phone Herlinda Vargas Primary Care Provider [phone] Source Comments PLEASE NOTE, if this patient is a minor, it may be UNLAWFUL to discuss sensitive information that is contained in these records (such as FAMILY PLANNING, MENTAL HEALTH or SUBSTANCE ABUSE) with the minor patient's parent or other person without the patient's specific authorization.[facility] Allergies No known active allergies Medications aspirin-acetamin ophen-caffeine (EXCEDRIN MIGRAINE) 250-250-65 mg per tabletIndication s:Migraine with aura and without status migrainosus, not intractable Take 1 Tablet by mouth every 6 (six) hours as needed for pain 30 Tablet 1 2 Active FLUoxetine (PROZAC) 40 mg capsuleIndicatio ns:Current moderate episode of major depressive disorder, unspecified whether recurrent ([facility]),Prescr iption refill Take 1 Capsule by mouth once daily 90 Capsule 1 2 Active cholecalciferol 50 mcg (2,000 unit) capsuleIndicatio ns:Low vitamin D level,Prescripti on refill Take 1 Capsule by mouth once daily 90 Capsule 1 2 Active L norgest/e.estrad ioL-e.estrad (SIMPESSE) 0.15 mg-30 mcg (84)/10 mcg (7) 3MPk TAKE 1 TABLET BY MOUTH DAILY 91 Tablet 3 4 Active cetirizine (ZYRTEC) 10 mg tabletIndication s:Seasonal allergic rhinitis, unspecified trigger Take 1 Tablet by mouth once daily 90 Tablet 1 4 Active methocarbamoL (ROBAXIN) 500 mg tablet Authorized by: TERESA GRAF 4 Active fluticasone (FLONASE) 50 mcg/actuation nasal sprayIndications :Mild intermittent asthma without complication SHAKE LIQUID AND USE 1 SPRAY IN EACH NOSTRIL DAILY 16 g 2 4 Active albuterol HFA 90 mcg/actuation inhalerIndicatio ns:Mild intermittent asthma without complication INHALE 2 PUFFS INTO THE LUNGS EVERY 4 TO 6 HOURS NEEDED FOR SHORTNESS OF BREATH 6.7 g 4 Active budesonide-formo teroL (SYMBICORT) 80-4.5 mcg/actuation inhalerIndicatio ns:Mild persistent asthma without complication Inhale 2 Puffs into the lungs 2 (two) times daily 10.2 g 2 5 Active ofloxacin (FLOXIN) 0.3 % otic solutionIndicati ons:Viral otitis externa, right Place 3 Drops into the left ear 2 (two) times daily for 7 days 10 mL 5 025 Active budesonide-formo teroL (SYMBICORT) 80-4.5 mcg/actuation inhalerIndicatio ns:Mild persistent asthma without complication Inhale 2 Puffs into the lungs 2 (two) times daily 10.2 g 2 4 025 Discontin ued(Reord er (E-Cancel Not Sent)) Active Problems Problem Noted Date Diagnosed Date Mild intermittent asthma without complication Migraine with aura and witho ut status migrainosus, not intractable 10/12/2021 Pelvic pain syndrome 10/12/2021 JALYN (generalized anxiety disorder) 07/11/2021 Current moderate episode of major depressive disorder ([facility]) 07/11/2021 Lumbar herniated disc 04/21/2021 Blindness of both eyes 11/13/2020 Chronic bilateral low back pain with bilateral s ciatica 11/13/2020 Overview (11/13/2020): S/p injury 04/2018 Chronic post-traumatic stress disorder 1 Encounters Date Type Department Care Team Description 06/30/2024 10:40 AM EST Office Visit [facility] [address] [place] [address] Russ Sheets, PharmD Mild persistent asthma without complication (Primary Dx); Viral otitis externa, right 04/08/2024 1:20 PM EST Office Visit [facility] [address] [place] [address] Russ Sheets, Sánchez Mild persistent asthma without complication (Primary Dx) 04/08/2024 Travel from Last 3 Months Immunizations Name Administration Dates Next Due Flu, Preservative Free 01/15/2023,03/16/2022,11/2021 Hep B,adult,adjuvanted (HEPLISAV) 12/18/2022,01/2023 Influenza (FLUBLOK),recombinant,injectable,preserva tive Free 03/05/2024 MENINGOCOCCAL B (Bexsero), OMV 12/20/2023,2022 MMR (MMR II/Priorix) 01/19/2023,12/18/2022 Moderna COVID-19 (Spikevax), Mrna, Lnp-s, Pf, 50 Mcg/0.5 Ml, 12yr+ 12/20/2023(Deferred: Out of Stock) Moderna COVID-19 Vaccine, re d cap blue label, 12+ Primary Series 11/10/2020,10/05/2020,09/04/2020 PNEUMOCOCCAL CONJUGATE PCV 20 (Prevnar) 03/16/20 22 TDAP 02/12/2023,07/11/2021 Family History Relation Name Status Comments Father Alive Mother Alive Sister Alive Son 1 Alive Son 2 Alive Social History Tobacco Use Types Packs/Day Years Used Date Smoking Tobacco: Former Cigarettes 1 1 0 11/13/2016 - 11/13/2017 Smokeless Tobacco: Never Alcohol Use Standard Drinks/Week Comments Yes 0 (1 standard drink = 0.6 oz pur e alcohol) social/rare Social Connections Answer Date Recorded Connectedness 0 01/09/2024 Financial Resource Strain Answer Date R ecorded Financial Resource Strain 0 2021 Stress Answer Date Recorded Stress 0 10/12/2021 Physical Activity Answer Date Recorded Physical Activity 0 11/13/2020 Food Insecurity Answer Date Recorded Food 0 10/12/2021 Transportation Needs Answer Date Record ed Transportation 0 10/12/2021 Housing Stability Answer Date Recorded Housing 0 10/12/2021 Safety and Environment Answer Date Emiliano rded Safety 1 12/20/2023 Utilities Answer Date Recorded Utilities 0 10/12/2021 Employment Answer Date Recorded Stress 0 07/25/2021 Comments No Sex and Gender Information Value Date Recorded Sex Assigned at Female 11/13/2020 8:44 AM PDT Legal Sex Female 11:58 AM PDT Gender Identity Female 11/13/2020 8:44 AM PDT Sexual Orientation Pansexual 11/13/2020 8: 44 AM PDT Last Filed Vital Signs Vital Sign Reading Time Taken Comments Blood Pressure 122/86 06/30/2024 10:28 AM EST Pulse 91 06/30/2024 10:28 AM EST Temperature 36.8 ??C (98.3 ??F) 06/30/2024 10:[address] Respiratory Rate 20 06/30/2024 10:28 AM EST Oxygen Saturation 97% 06/30/2024 10:28 AM EST Inhaled Oxygen Concentration - - Weight 81.2 kg (179 lb) 06/30/2024 10:28 AM EST Height 157.5 cm (5' 2 ) 06/30/2024 10:28 AM EST Body Mass Index 32.74 06/30/2024 10:28 AM EST Plan of Treatment Health Maintenance Due Date Last Done Comments HPV Screening 1990 Medicare Annual Wellness Visit 2008 [id number] ( season) 2024 11/10/2020, 10/05/2020, 09/04/2020 Depression Monitoring 03/21/2024 12/20/2023 , 12/18/2022, 09/05/2022, Additional history exists Alcohol and Drug Screen 05/07/2024 12/20/19, 09/05/2022, 10/12/2021, Additional history exists Pap Smear 06/21/2024 06/21/2021 (Ophelia argueta by Outside Provider), 06/21/2021 Relationship Safety Screening/Counseling 12/19/2024 12/20/2023, 12/18/2022, 10/12/2021, Additional history exists Tobacco Screening 12/19/2024 12/20/2023, 12/18/2022 Hypertension Screening (#1) 06/30/2025 Cervical Cancer Screening 06/21/2026 Pap + HPV 06/21/2026 06/21/2021 Lipid Screening 12/19/2026 12/20/2023, 09/04, 01/11/2021 Imm-DTaP/Tdap/Td (3 - Td or Tdap) 02/12/2033 023, 07/11/2021 HIV Screening Completed 01/11/2021, 01/11/2021 Hepatitis C Screening Completed 01/11/2021 Imm-Pneumococcal Completed 03/16/2022 Imm-Hepatitis B Completed 12/18/2022, 09/12/2022 Imm-Meningococcal B Completed 12/20/2023, Imm-Influenza Completed 03/05/2024, 01/05, 03/16/2022, Additional history exists Cervical Ablation/Cold-Knife Conization Discontinued Cervical Cryotherapy Discontinued Colposcopy Discontinued Endometrial Biopsy Discontinued Excision/Leep Discontinued HPV Genotyping Discontinued Vaginal Pap Discontinued Vulvoscopy Discontinued Procedures Procedure Name Priority Date/Time Associated Diagnosis Comments REFERRAL FOR PULMONARY FUNCTION TEST Routine 04/04/2024 3:00 AM EST Mild persistent asthma without complication LIPID PANEL Routine 12/20/2023 9:43 AM EDT Annual physical exam PAP W/ HPV 06/21/2021 3:00 AM EST HIV 1/2 AG & AB W/RFLX (4TH GEN) Routine 01/11/2021 11:13 AM EDT Screening for viral disease HEPATITIS C AB W/RFLX HCV RNA, QT, RT PCR Routine 01/11/2021 11:13 AM EDT Screening for viral disease from Last 3 Months or Most Recently Relevant to Health Maintenance Results * REFERRAL FOR PULMONARY FUNCTION TEST (04/04/2024 3:00 AM EST) 04/04/2024 3:00 AM EST Russ Valles PharmD REFERRAL Final Result * (ABNORMAL) LIPID PANEL (12/20/2023 9:43 AM EDT) CHOLESTEROL, TOTAL 241(H) <200 mg/dL [facility] HDL CHOLESTEROL 49(L) > OR = 50 mg/dL [facility] TRIGLYCERIDES 238(H) <150 mg/dL [facility] Comment: If a non-fasting specimen was collected, consider repeat triglyceride testing on a fasting specimen if clinically indicated. Feli et al. J. of Clin. Lipidol. 2015;9:129-169. LDL-CHOLESTEROL 152(H) 99 mg/dL (calc) [facility] Comment: Reference range: <100 Desirable range <100 mg/dL for primary prevention; ?? <70 mg/dL for patients with CHD or diabetic patients with > or = 2 CHD risk factors. LDL-C is now calculated using the Michel-Soto calculation, which is a validated novel method providing better accuracy than the Friedewald equation in the estimation of LDL-C. Michel ZHENG et al. JEVON. 2013;310(19): 9884-9184 (http://education.Healthcare Bluebook/faq/TPZ571) CHOL/HDLC RATIO 4.9 <5.0 (calc) [facility] NON-HDL CHOLESTEROL 192(H) <130 mg/dL (calc) [facility] Comment: For patients with diabetes plus 1 major ASCVD risk factor, treating to a non-HDL-C goal of <100 mg/dL (LDL-C of <70 mg/dL) is considered a therapeutic option. Blood Blood / Unknown 12/20/2023 9 :43 AM EDT 12/20/2023 9:44 AM EDT Narrative [facility] - 12/21/2023 5:01 AM EDT FASTING:YES Herlinda [facility] - BLOOD DRAW Final Result [facility] [address] [place] [id number], [facility] [address] [address] * PAP W/ HPV (06/21/2021 3:00 AM EST) 06/21/2021 3:00 AM EST Modesta Walker [facility] - NO BLOOD DRAW Final Re sult * HEPATITIS C AB W/RFLX HCV RNA, QT, RT PCR (01/11/2021 11:13 AM EDT) Pathologist [facility] [place] HEPATITIS C ANTIBODY NON-REACT LEONIE NON-REACT LEONIE [facility] SIGNAL TO CUT-OFF 0.01 <1.00 [facility] Comment: HCV antibody was non-reactive. There is no laboratory evidence of HCV infection. In most cases, no further action is required. However, if recent HCV exposure is suspected, a test for HCV RNA (test code 21143) is suggested. For additional information please refer to http://education.EverybodyCar/faq/TYM22d9 (This link is being provided for informational/ educational purposes only.) Blood Blood / Unknown 01/11/2021 1 1:13 AM EDT 01/11/2021 11:14 AM EDT Narrative [facility] - 01/12/2021 6:42 PM EDT FASTING:YES Modesta Walker [facility] - BLOOD DRAW Edited Resu lt - Final [facility] [address] [facility] [address] [place] [address], [facility] [address] [address] * HIV 1/2 AG & AB W/RFLX (4TH GEN) (01/11/2021 11:13 AM EDT) Pathologist [facility] [place] HIV AG/AB, 4TH GEN NON-REAC TIVE NON-REAC TIVE [facility] Comment: HIV-1 antigen and HIV-1/HIV-2 antibodies were not detected. There is no laboratory evidence of HIV infection. PLEASE NOTE: This information has been disclosed to you from records whose confidentiality may be protected by state law. ??If your state requires such protection, then the state law prohibits you from making any further disclosure of the information without the specific written consent of the person to whom it pertains, or as otherwise permitted by law. A general authorization for the release of medical or other information is NOT sufficient for this purpose. ?? For additional information please refer to http://education.EverybodyCar/faq/PKB828 (This link is being provided for informational/ educational purposes only.) The performance of this assay has not been clinically validated in patients less than 2 years old. Blood Blood / Unknown 01/11/2021 1 1:13 AM EDT 01/11/2021 11:14 AM EDT Narrative [facility] - 01/12/2021 6:42 PM EDT FASTING:YES Modesta Walker [facility] [facility] - BLOOD DRAW Final Resul t [facility] [address] [address], [facility] [address] [address] from Last 3 Months or Most Recently Relevant to Health Maintenance Insurance [employer] MEDICARE COMPLETE [place] MEDICAID Care Teams Truck Repair Service Estimator Relationship Specialty Start Date End Date Herlinda Vargas PA [address] [place] [address] PCP - General Primary Care 05/15/23
--- OUTSIDE RECORDS SUMMARY | 2024-07-02 04:53 | XMS_ITS | Encounter Summary ---
Author Organization [facility] Address [address] [place] [address] Care Team Providers Care Gasket Notcher Name Role Phone Herlinda Vargas Primary Care Provider [phone] Reason for Visit * Reason Comments Asthma Ear Pain Left for one week Encounter Details Date Type Department Care Team (Late st Contact Info) Description 06/30/2024 10:40 AM EST Office Visit [address] [phone] Russ Sheets, PharmD [address] [place] [address] Mild persistent asthma without complication (Primary Dx); Viral otitis externa, right Social History Tobacco Use Types Packs/Day Years [...] Orientation Pansexual 11/13/2020 8: 44 AM PDT documented as of this encounter Last Filed Vital Signs Vital Sign Reading [...] Mass Index 32.74 06/30/2024 10:28 AM EST documented in this encounter Progress Notes * Russ Valles PharmD - 06/30/2024 10:39 AM EST Valeri Renteria is a 34 year old, Swedish-speaking female who presents today for FOLLOW-UP Asthma Clinic visit with Russ Polanco PharmD. Referred by JULIANNE Aburto. No tin assorter needed for today's visit as patient speaks Swedish. HPI: Patient reports: States that she started having flu like symptoms 2 weeks ago. Reports that symptoms improved, however now complains of uncontrollable drainage of left ear. Denies fever. Endorses adherence to maintenance inhaler. Denies recent rescue inhaler use. Denies cough, chest tightness, wheezing. New concerns: No concerns Pulmonology Specialists: None PHARMACOTHERAPY: Current controller medications: Symbicort 80-4.5 mcg 2 puffs BID Patient reported medication adherence: adherent all of the time Current reliever medications: albuterol HFA 90 mcg as needed for SOB Use frequency: once or twice monthly Spacer at home: No Nebulizer at home: No Additional OTC medications or supplements: Franc MVI Patient reports the following medication side effects: none ACT Asthma Assessment (Age 12 y/o - Adults): Previous ACT (04/08/24) - 24 - Well Controlled Asthma Current visit ACT - 23 - Well Controlled Asthma Asthma Control Test In the past 4 weeks, how much of the time did your asthma keep you from getting as much done at work, school or at home?: None of the time During the past 4 weeks, how often have you had shortness of breath?: Not at all During the past 4 weeks, how often did your asthma symptoms (wheezing, coughing, shortness of breath, chest tightness or pain) wake you up at night or earlier than usual in the morning?: Not at all During the past 4 weeks, how often have you used your rescue inhaler or nebulizer medication (such as albuterol)?: Once a week or less How would you rate your asthma control during the past 4 weeks?: Well controlled Asthma Control Test Total:: 23 Patient able to teach back proper inhaler technique BEFORE provider education: Yes Symptoms occur or worsen (TRIGGERS): dust, mold, pollens, and changes in weather # of ER visits in the last year for asthma: 0 Approximate date of last ER asthma visit: N/A # of oral steroid prescriptions in the last year: 0 Last spirometry: never done Pneumonia vaccination (indication: asthma): 2021 Flu vaccination (indication: influenza prevention): 02/2024 Tobacco Intervention: Never Smoker Pets: 4 cats Housing: denies mold ASSESSMENT: Asthma Control: Well controlled. PLAN: J45.30 Mild persistent asthma without complication (primary encounter diagnosis) Plan : BUDESONIDE-FORMOTEROL HFA 80 MCG-4.5 MCG/ACTUATION AEROSOL INHALER - Inhale 2 Puffs into the lungs 2 (two) times daily Counseled patient on importance of administering medications as prescribed. Continue current controller medications as directed and monitoring: Symbicort 80-4.5 mcg 2 puffs BID and Continue current reliever medications as needed for shortness of breath: albuterol HFA 90 mcg as needed for SOB. Return in about 3 months (around 09/27/2024) for Asthma f/u. H60.391 Viral otitis externa, right Plan : OFLOXACIN 0.3 % EAR DROPS - Place 3 Drops into the left ear 2 (two) times daily for 7 Days Jodi Singh PA-C took a look at ear and confirmed otitis media. Ofloxacin Rx ordered. EDUCATION PROVIDED: Medication: (indication, dosage, administration, storage, side effects, missing dose) Lifestyle Modifications (weight, exercise) Russ Polanco PharmD, [facility] documented in this encounter Miscellaneous Notes * Patient Instructions - Russ Valles PharmD - 06/30/2024 10:54 AM EST If you are not able to keep your appointment please call 24-48 hours before your appointment to cancel or reschedule. Russ Polanco PharmD, [facility] MTM/Clinical Pharmacist ext. [phone] documented in this encounter Plan of Treatment Not on file documented as of this encounter Visit Diagnoses Diagnosis Mild persistent asthma without complication- Primary Unspecified asthma Viral otitis externa, right documented in this encounter Additional Health Concerns Assessment Noted Time PHQ-9 Depression Total Score: 0 12/20/19 24 8:48 AM PDT documented as of this encounter Care Teams Gasket Notcher Relationship Specialty Start Date End Date Herlinda Vargas PA [address] [place] [address] PCP - General Primary Care 05/15/23 documented as of this encounter
--- OUTSIDE RECORDS SUMMARY | 2024-07-02 04:53 | XMS_ITS | Data Portability ---
Author Organization [facility], autoContract Address [address] [place] [address] Care Team Providers Care Screen Examiner Name Role Phone MELINDA CLEMENS Manuscript Reader Unavailable Assessment Encounter Date Assessment Date Assessment LastModified by Organization Details LastModified Time 03/03/2022 03/03/2022 I reviewed her new lumbar MRI from [facility] in [place] that is similar to her prior MRI. She has some gaps in her facets at L4-5 and a disc bulge with annular tear at L5-S1. I would agree that she could be a candidate for a L4-S1 TLIF, but this should be the absolute last resort. She will follow up as needed. [email or web address] Not available 03/03/2022 16:24:37 Plan of Treatment Reminders Order Date Submit Date Provider Last Modified By Organization Details Last Modified Time Details Appointments None record ed. Lab None record ed. Referral None record ed. Procedures None record ed. Surgeries None record ed. Imaging None record ed. Medication Orders None record ed. Patient TargetsNo targets recorded. Patient InstructionsNo instructions recorded. Reason for Referral None Reported. Results Created Date Observation Date Name Description Value Unit Range Abnormal Flag Note LastModifiedBy Organization Detail LastModifiedTime 03/03/2011/18/2021 MRI, lumba r spine , w/o contr ast No observ ation record ed. eoberlander Not Available 02/05 16:26:36 Result Notes None recorded. Problems Name Problem SNOMED Code Status Onset Date Resolution Date Notes Provider Name and Address Organization Details Recorded Time Cervical radiculopat hy 62408042 Active 2018 Problem Code: M54.12; Problem Code Type: ICD-10; Not Available [facility] 22:26:21 Prolapsed lumbar interverteb ral disc 360319836 Active 2018 Problem Code: M51.26; Problem Code Type: ICD-10; Not Available [facility] 22:26:21 Lumbosacral radiculopat hy 3091411 Active 2018 Problem Code: M54.16; Problem Code Type: ICD-10; Not Available [facility] 2 22:26:21 Lumbosacral spondylosis without myelopathy 27373057 Active 2019 Problem Code: M47.817; Problem Code Type: ICD-10; Not Available [facility] 22:26:22 Overweight 239137317 Active 2019 Problem Code: E66.3; Problem Code Type: ICD-10; Not Available [facility] 22:26:22 Body mass index 30+ - obesity 695346686 Active 2019 Problem Code: Z68.30; Problem Code Type: ICD-10; Not Available [facility] 22:26:22 Problem Notes None recorded. Procedures Surgical History None recorded. Imaging Results Imaging Date Name Status LastModified by Organiz ation Details LastModified Time 11/18/2021 MRI, lumbar spine, w/o contrast completed [facility] Information not available 03/03/2022 16:26:36 Procedure Notes None recorded. Medical Equipment None Reported. Allergies No known drug allergies Medications Name Sig Start Date Stop Date Status Note LastModified by Organization Details LastModified Time fluoxetine 40 mg capsule TAKE 1 CAPSULE BY MOUTH EVERY DAY active Not Available Not Available No t Available gabapentin 600 mg tablet TAKE 1 TABLET BY MOUTH THREE TIMES DAILY active Not Available Not Available No t Available tizanidine 4 mg tablet TAKE 1 TABLET BY MOUTH THREE TIMES DAILY NEEDED FOR MUSCLE SPASMS 03/03 completed Not Available Not Available Not Available sumatriptan 50 mg tablet 03/03 completed Not Available Not Available Not Available benzonatate 100 mg capsule TAKE 1 CAPSULE BY MOUTH TWICE DAILY NEEDED FOR COUGH 03/03 completed Not Available Not Available Not Available gabapentin 300 mg capsule TAKE 1 CAPSULE BY MOUTH THREE TIMES DAILY 03/03 completed Not Available Not Available Not Available gabapentin 100 mg capsule 03/03 completed Not Available Not Available Not Available doxycycline hyclate 100 mg tablet TAKE 1 TABLET BY MOUTH TWICE DAILY 03/03 completed Not Available Not Available Not Available cyclobenzap rine 5 mg tablet TAKE 1 TABLET BY MOUTH THREE TIMES DAILY NEEDED FOR MUSCLE SPASMS active Not Available Not Available No t Available ProAir HFA 90 mcg/actuati on aerosol inhaler INHALE 2 PUFFS INTO THE LUNGS EVERY 4 HOURS NEEDED FOR SHORTNESS OF BREATH OR WHEEZING active Not Available Not Available No t Available quetiapine 50 mg tablet TAKE 1 TABLET BY MOUTH EVERY NIGHT AT BEDTIME 03/03 completed Not Available Not Available Not Available cholecalcif melanie (vitamin D3) 50 mcg (2,000 unit) capsule TAKE 1 CAPSULE BY MOUTH ONCE DAILY 03/03 completed Not Available Not Available Not Available riboflavin (vitamin B2) 400 mg tablet TAKE 1 TABLET BY MOUTH EVERY DAY 03/03 completed Not Available Not Available Not Available Simpesse 0.15 mg-30 mcg (84)/10 mcg(7) tablets,3 month dose pack TAKE 1 TABLET BY MOUTH EVERY DAY active Not Available Not Available No t Available Vitals Date Recorded Body height Body mass index (BMI) Body weight Provider Name and Address Organization Details Last Updated DateTime 03/03/2022 157.48 cm 32.2 kg/m2 34701.26 g JOSELIN LYMAN [facility] 03/03/2022 15:52:48 Social History Question Answer Notes LastModified by Organizat ion Details LastModified Time Tobacco Smoking Status Never Smoker [facility] Saavedra [facility] 02/28/2022 18:09:30 Are You Currently Employed? Yes Information not available 02/28/2022 What Is The Highest Grade Or Level Of School You Have Completed Or The Highest Degree You Have Received? [id number] Information not available 02/28/2022 What Is Your Occupation? [employer] Information not available 02/28/2022 How Many Children Do You Have? -1 Information not available 02/28/2022 What Is Your Relationship Status? Information not available 02/28/2022 Do You Use Any Illicit Or Recreational Drugs? No Information not available 02/28/2022 Sex: Female Functional Status None recorded. Mental Status None recorded. Family History Nothing Reported. Medical History No medical history recorded. Gynecological HistoryNo gynecological history recorded. Obstetrics History GPAL:G 0 P 0 0 0 0 Past Encounters Encounter ID Performer Location Encounter Start Date Encounter Closed Date Diagnosis/Indication Diagnosis SNOMED-CT Code Diagnosis ICD10 Code Diagnosis Note [id number] Russell Arzola MD [facility] [id number] [place] [phone] 03/03/2022 15:49:18 03/05/2022 19:20:35 Lumbosacral spondylosis without myelopathy 59245666 M47.817 Lumbosacra l radiculopathy 4842399 M54.16 Health Concerns Section Related Observation LastModified by Organization Detai ls LastModified Time None Recorded Concern Status LastModified by Organization Details LastModified Time None Recorded Advance Directives Directive None Recorded Payers Encounter Date Sequence Insurance Name Policy Number Policy Garcia Covered Member ID Garcia Member ID Guarantor Name 03/03/2022 [facility] [id number] [facility] Valeri Peace Notes Date Note Type Note Provider Name and Address Organization Details Recorded Time 03/03/2022 text/html She continues with lower back [place] [address] [place], [address], [facility] 03/03/2022 16:25:05 OBGyn Episode No OBEpisode recorded.
--- NOTE | 2024-07-02 07:29 | ED.EAR ---
HPI - Ear Problem General Chief complaint: Ear Problems Stated complaint: upper resp symptoms Time Seen by Provider: 07/02/24 06:55 Source: patient Mode of arrival: ambulatory Limitations: no limitations History of Present Illness HPI Narrative: this is a 34 years old female patient presented to the emergency department complaining of left ear pain. Pain he has been going on for a week she was seen by the PCP 3 days ago she was started on ear drop. Denies any fever or chills. No history of diabetes she has a history of visual impairment MD Complaint: ear pain Location: left ear Duration: constant Severity: moderate Relieving factors: nothing Exacerbating factors: nothing Context: recent illness and other (flu) Treatment prior to arrival: eardrops Related Data Home Medications ?Medication ?Instructions ?Recorded ?Confirmed L norgest/E estradiol-E estrad 1 tab PO DAILY 05/15/22 12/17/23 0.15 mg-30 mcg (84)/10 mcg(7) tabs,3mos (Simpesse) albuterol sulfate 90 mcg/actuation 2 puff inhalation Q4H PRN wheezing 05/15/22 12/17/23 aerosol inhaler (ProAir HFA) cholecalciferol (vitamin D3) 50 50 mcg PO DAILY 05/15/22 12/17/23 mcg (2,000 unit) capsule fluoxetine 40 mg capsule 40 mg PO DAILY 05/15/22 12/17/23 melatonin 3 mg tablet 3 mg PO BEDTIME 09/29/22 12/17/23 Previous Rx's ?Medication ?Instructions ?Recorded methocarbamol 500 mg tablet 500 mg PO TID PRN moderate pain 09/24/23 (scale score 5-6) #90 tabs amoxicillin 875 mg-potassium 1 tab PO BID #20 tabs 07/02/24 clavulanate 125 mg tablet oxycodone 5 mg tablet 5 mg PO Q6H PRN pain #15 tabs 07/02/24 Allergies Allergy/AdvReac Type Severity Reaction Status Date / Time celecoxib Allergy Severe body Verified 07/01/24 23:15 swelling, itching Review of Systems Constitutional: Constitutional: Reports no additional constitutional complaints and Denies fever(s) Cardiovascular: Cardiovascular: Reports no additional cardiovascular complaints PMFSH Past Medical History PMFSH Narrative: visual improvement, chronic back pain, bipolar PTSD Medical History PTSD (post-traumatic stress disorder) Bipolar disorder Anxiety disorder Stargardts disease Social History Social History Advance Directives: No Do you have a plan to hurt others: No Plan Physical Exam Vital Signs: Vital Signs: Last Vital Signs Temp 97 F 07/02/24 07:50 Pulse 81 07/02/24 07:50 Resp 16 07/02/24 07:50 BP 142/98 H 07/02/24 07:50 Pulse Ox 97 07/02/24 07:50 O2 Del Method Room Air 07/02/24 07:50 BMI result Body Mass Index 32.1 she looks well she is not toxic-appearing, she has a temperature 97.9 degrees rechecked it was 97, she is normotensive not tachycardic Const: General: cooperative and no acute distress Orientation/consciousness: patient oriented x3 HEENT: Head: Yes normal to inspection Ears: other ( left ear she has a redness of the TM bulging as well. ) General nose exam: Normal external nose present and Other nasal findings present ( no mastoid tenderness) Throat: Yes posterior oropharynx normal Neck: Neck: Yes normal visual inspection and Yes full ROM Chest: Chest palpation & inspection: normal inspection of the chest Resp: Effort & Inspection: normal respiratory effort Auscultation: clear to auscultation bilaterally Cardio: Jugular venous distension: no JVD Rate: regular rate Rhythm: regular rhythm GI: Inspection: Yes normal to inspection Palpation (GI): Soft to palpation and not firm Neuro: General: patient oriented x3 Medications Administered Discontinued Medications Generic Name Dose Route Start Last Admin Trade Name Freq PRN Reason Stop Dose Admin Amoxicillin/Clavulanate Potassium 875 mg 07/02/24 07:20 07/02/24 07:33 Amoxicillin/Potassium Clav 875 Mg Tablet PO 07/02/24 07:21 875 mg ONCE ONE Administration Oxycodone HCl 10 mg 07/02/24 07:19 07/02/24 07:33 Oxycodone Hcl Immed Release 5 Mg Tablet PO 07/02/24 07:20 10 mg ONCE ONE Administration Medical Decision Making Medical Decision Making MDM Narrative: patient presented with a chief complaint of left ear pain treated with eardrops no better no evidence of mastoiditis no evidence of sepsis no history of diabetes we will start him on p.o. antibiotic Augmentin Differential Diagnosis Differential Diagnoses: The differential diagnosis associated with the presentation includes left otitis media/ left TM perforation Admission/Observation Consideration of admission/observation: Escalation of care including admission/observation considered Lab Data MDM Lab Attestation statement: I reviewed the patient's lab results. Labs: Lab Results 07/01/24 Range/Units 23:21 Influenza Type A (PCR) NEGATIVE (Negative) Influenza Type B (PCR) NEGATIVE (Negative) RSV RNA Qual (PCR) NEGATIVE (Negative) SARS-CoV-2 RNA (RT-PCR) NEGATIVE (Negative) Independent Interpretation I performed an independent interpretation of an: Plain X-Ray Radiology Impression Discussion of test interpretation with radiology: I have reviewed the radiologist's reading. Prescription Management I considered prescription management with: Pain Medication and Antibiotic Discharge Plan Discharge Clinical Impression: Otitis media Qualifiers: Otitis media type: unspecified Chronicity: acute Qualified Code(s): H66.90 - Otitis media, unspecified, unspecified ear Patient Disposition: Home, Self-Care Instructions: Ear Infection (ED) Additional Instructions: follow-up with your primary care physician also we gave you the number of the ENT take Augmentin as directed return if you worse we sent a prescription to you to [facility] in [place] Prescriptions: New amoxicillin-pot clavulanate 875-125 mg tablet 1 tab PO BID Qty: 20 0RF oxycodone 5 mg tablet 5 mg PO Q6H PRN (Reason: pain) Qty: 15 0RF Rx Instructions: partial filing upon pt request; Partial Fill upon patient request. No Action L norgest/e.estradiol-e.estrad [Simpesse] 0.15 mg-30 mcg (84)/10 mcg (7) tablets,dose pack,3 month 1 tab PO DAILY fluoxetine 40 mg capsule 40 mg PO DAILY cholecalciferol (vitamin D3) 50 mcg (2,000 unit) capsule 50 mcg PO DAILY albuterol sulfate [ProAir HFA] 90 mcg/actuation HFA aerosol inhaler 2 puff inhalation Q4H PRN (Reason: wheezing) melatonin 3 mg tablet 3 mg PO BEDTIME methocarbamol 500 mg tablet 500 mg PO TID PRN (Reason: moderate pain (scale score 5-6)) Qty: 90 5RF Referrals: Domingo Blair [Physician] - 2 days Interventions: ED Discharge Assessment Last Done: 07/02/24 07:50 Discharge Date/Time: 07/02/24 07:51 Print Language: Romansh
[2024-07-02] MEDS: oxyCODONE HCl Immed Release 5 MG TABLET 10 MG PO (07:33)
[2024-07-02] MEDS: Amoxicillin/Potassium Clav 875 MG TABLET PO (07:33)
[2024-07-02 07:50] VITALS: BP 142/98; PULSE 81; RESP 16; TEMP 36.1; O2SAT 97
== END 2024-07-02 07:51 | disposition home or self-care (01) ==
PROVIDERS: Emergency Provider Emergency Medicine; PCP Nurse Practitioner Family
DX: H66.92 Otitis media, unspecified, left ear (principal); H92.02 Otalgia, left ear; E11.9 Type 2 diabetes mellitus without complications; Z03.818 Encounter for observation for suspected exposure to other biological agents ruled out
CPT/HCPCS: 0241U; 71045; 99283; 99284

== ENCOUNTER → 2024-07-01 23:25 | Outpatient (BNV) | payer MEDICARE, MEDICAID, SELFPAY | PROVIDERS: PCP Nurse Practitioner Family; Visit Provider Radiology Diagnostic Radiology | DX: J98.11 Atelectasis (principal) | CPT/HCPCS: 71045 ==